=== PATIENT | female | born 1975 | race American Indian/Alaskan Native ===

== ENCOUNTER 2021-11-01 14:19 | Outpatient (CLI) | payer BC, OTHER ==
[2021-11-01 15:49] LABS: % Iron Saturation 14.37 %; Alanine Aminotransferase 38 units/L (7-56); Albumin 4.6 g/dL (3.9-5); BUN/Creatinine Ratio 13; Blood Urea Nitrogen 12 mg/dL (7-17); Calcium 9.7 mg/dL (8.4-10.2); Chol/HDL Ratio 2.56 %; HDL Cholesterol 58 mg/dL (40-59); Hemolysis Index 12; Iron 48 ug/dL (37-170); LDL Cholesterol,Direct 82 mg/dL (50-130); Total Iron Binding Capacity 334 mcg/dL (250-450)
== END 2021-11-01 14:20 | disposition home or self-care (01) ==
LOC: LAB 14:19
PROVIDERS: ATTEND Surgery
DX: Z01.812 Encounter for preprocedural laboratory examination (principal); Z13.1 Encounter for screening for diabetes mellitus; Z13.29 Encounter for screening for other suspected endocrine disorder; Z13.21 Encounter for screening for nutritional disorder; E66.01 Morbid (severe) obesity due to excess calories; E55.9 Vitamin D deficiency, unspecified; K30 Functional dyspepsia
CPT/HCPCS: 36415; 80053; 80061; 82306; 82607; 82728; 83036; 83550; 84443

== ENCOUNTER 2021-11-20 08:20 | Outpatient (CLI) | payer BC, OTHER ==
--- NOTE | 2021-11-20 10:44 | Fluoroscopy Report ---
ESOPHAGRAM INDICATION / CLINICAL INFORMATION: k30 E66.01 TECHNIQUE: Esophagram was performed with double contrast barium and air. COMPARISON: None available. FINDINGS: MOTILITY: No significant abnormality. MUCOSA: No significant abnormality. MASS: None. STRICTURE: None. HIATAL HERNIA: None. REFLUX: None. BARIUM TABLET: Tablet passed into the stomach without delay. ADDITIONAL FINDINGS: None. Fluoroscopy Time: 1.1 minutes. Fluoroscopy Images: 14. IMPRESSION: 1. No significant abnormality. Signer Name: Juancarlos De La Cruz DO Signed: 11/20/2021 10:40 AM Workstation Name: [id number]
--- NOTE | 2021-11-21 05:40 | Treadmill Report ---
DATE OF SERVICE: 11/20/2021 TREADMILL STRESS TEST ORDERING PHYSICIAN: Dr. Oscar. INDICATION: Preop. DESCRIPTION OF PROCEDURE: The patient exercised on Denys protocol for 6 minutes. Resting blood pressure 140/85, resting Heart rate was 80. Resting EKG, sinus rhythm with nonspecific ST-T's. Max blood pressure 156/64. Max heart rate was 167, which is 100% max predicted heart rate. There were no EKG changes suggestive of ischemia. Stopped secondary to shortness of breath. SUMMARY: 1. Negative treadmill EKG. 2. Fair exercise capacity 6 minutes Denys protocol. 3. No exaggerated blood pressure response to exercise. 5. There were no EKG changes or arrhythmias suggestive of ischemia. TID: [id number] RECEIPT: [id number] MALA/NATASHA/WILLIAM MTDMirian
== END 2021-11-20 08:21 | disposition home or self-care (01) ==
LOC: FLUORO 08:20
PROVIDERS: ATTEND Surgery
DX: Z01.818 Encounter for other preprocedural examination (principal); K30 Functional dyspepsia; E66.01 Morbid (severe) obesity due to excess calories
CPT/HCPCS: 74220; 93017

== ENCOUNTER → 2021-12-03 | Outpatient (CLI) | payer BC, OTHER | END | disposition home or self-care (01) | LOC: SLR 11:00 | PROVIDERS: ATTEND Surgery | DX: G47.30 Sleep apnea, unspecified (principal) | CPT/HCPCS: 95810 ==

== ENCOUNTER 2021-12-17 11:00 | Outpatient (CLI) | payer BC, OTHER | END 2021-12-17 11:01 | disposition home or self-care (01) | LOC: SLR 11:00 | PROVIDERS: ATTEND Surgery | DX: G47.33 Obstructive sleep apnea (adult) (pediatric) (principal) | CPT/HCPCS: 95811 ==

== ENCOUNTER 2022-01-29 07:51 | Day surgery (SDC) | payer BC, OTHER ==
[~2022-01-29 07:51] MED LIST: SODIUM CHLORIDE 0.9% 1000 ML 1,000 ML IV SCH
--- NOTE | 2022-01-29 08:44 | Anesthesia Consultation ---
Anesthesia Consult and Med Hx Date of service: 01/29/22 - Airway Anesthetic Teeth Evaluation: Good ROM Head & Neck: Adequate Mental/Hyoid Distance: Adequate Mallampati Class: Class I (s/p T&A and palate shaving) Intubation Access Assessment: Good - Pre-Operative Health Status ASA Pre-Surgery Classification: ASA3 Proposed Anesthetic Plan: MAC - Pulmonary Hx Smoking: No Hx Respiratory Symptoms: No Hx Sleep Apnea: Yes (awaiting CPAP machine) - Cardiovascular System Hx Hypertension: Yes - Central Nervous System CVA: No - Gastrointestinal Hx Gastroesophageal Reflux Disease: Yes - Endocrine Hx Renal Disease: No Hx Liver Disease: No Hx Insulin Dependent Diabetes: No Hx Non-Insulin Dependent Diabetes: No Hx Thyroid Disease: No - Other Systems Hx Obesity: Yes (BMI 46) - Additional Comments Anesthesia Medical History Comments: No hx anesthetic complications.
--- NOTE | 2022-01-29 08:44 | Anesthesia Day of Surgery ---
Anesthesia Day of Surgery - Day of Surgery Patient Examined: Yes Patient H&P Reviewed: Yes Patient is NPO: Yes
--- NOTE | 2022-01-29 09:52 | Discharge Summary ---
Providers - Providers Date of Admission: 01/29/2022 Date of discharge: 01/29/22 Attending physician: ROXANA STAUFFER MD Primary care physician: BAYRON BUSTILLO MD Hospitalization Reason for admission: pre-op egd Condition: Good Procedures: egd w/ bx Hospital course: Pt presented for a pre-op EGD as part of planning for up coming bariatric surgery. Procedure was uneventful and pt recovered well and was discharged to home. Disposition: 01 HOME / SELF CARE / HOMELESS Final Discharge Diagnosis (Prints w/discharge instructions): gerd, morbid obesity Core Measure Documentation - Palliative Care Palliative Care/ Comfort Measures: Not Applicable - Core Measures Any of the following diagnoses?: none Exam - Physical Exam Narrative exam: unchanged from pre-op Plan Activity: advance as tolerated Diet: low carbohydrate Follow up with: BAYRON BUSTILLO MD [Primary Care Provider] - 7 Days
--- NOTE | 2022-01-29 09:53 | Operative Report ---
Operative Report Operative Report: DATE: 01/29/2022 SURGERY: Upper endoscopy. SURGEON: Nancy Oscar M.D. PROCEDURE: EGD with biopsy PRE OP DX: morbid obesity, GERD POST OP DX: morbid obesity, GERD TYPE OF ANESTHESIA: MAC. ESTIMATED BLOOD LOSS: None. COMPLICATIONS: None. SPECIMENS REMOVED: antral biopsy FINDINGS: 1. moderate hiatal hernia. 2. retained food 3. Gastritis INDICATIONS:INDICATION FOR PROCEDURE: Patient is a 46-year-old female with a long history of morbid obesity. She is planned to have a weight loss procedure and is here for preoperative planning EGD. PROCEDURE DETAILS: After consent was reviewed, patient was taken back to the operating room where patient was placed in the left lateral decubitus position and a bite block was placed in the mouth. After a time-out was called, MAC anesthesia was initiated. I then passed the endoscope into her oropharynx, into her esophagus, visualized the entire esophagus, which was all within normal limits. Z-line was noted to about 35cm from incisors. I then visualized the stomach and the first portion of the duodenum and there were no abnormalities I could clearly visualize except for gastritis. There was noted to be some retained food however it was easily flushed away to see the entirety of the stomach. A cold forceps biopsy of the a ntrum was taken and will be sent to pathology to evaluate for H.pylori. I then retroflexed the scope in the stomach and visualized the hiatus and I could see a 2 to 3 cm hiatal hernia. I then desufflated the stomach and removed the endoscope. Patient tolerated procedure well and was transferred to recovery room in good and stable condition.
[2022-01-29] MEDS ORDERED: propofoL 200 MG/20 ML VIAL IV ONE ×2 (10:05)
--- NOTE | 2022-01-29 13:21 | Post Anesthesia Evaluation ---
- Post Anesthesia Evaluation Patient Participated: Yes Airway Patent: Yes Stable Respiratory Function: Yes Nausea/Vomiting: No Temp > 96.8F: Yes Pain Manageable: Yes Adequeate Hydration: Yes Anesthesia Complications: No
[2022-01-29 17:56] VITALS: BP 115/63
== END 2022-01-29 11:55 | disposition home or self-care (01) ==
LOC: GIO 07:51
PROVIDERS: ATTEND Surgery
DX: K21.9 Gastro-esophageal reflux disease without esophagitis (principal); E66.01 Morbid (severe) obesity due to excess calories; K44.9 Diaphragmatic hernia without obstruction or gangrene; K29.70 Gastritis, unspecified, without bleeding; G47.33 Obstructive sleep apnea (adult) (pediatric); M19.90 Unspecified osteoarthritis, unspecified site; Z91.013 Allergy to seafood; Z79.899 Other long term (current) drug therapy; Z98.890 Other specified postprocedural states; Z90.49 Acquired absence of other specified parts of digestive tract; Z98.51 Tubal ligation status; I10 Essential (primary) hypertension; Z68.42 Body mass index [BMI] 45.0-49.9, adult
CPT/HCPCS: 43239; 81025; 88305; 88342; J2704; J7030